=== PATIENT | male | born 1945 | race Caucasian/White ===

== ENCOUNTER 2024-07-29 11:56 | Inpatient (IN) | payer MEDICARE ==
[~2024-07-29] VITALS: Ht 274.3 cm; Wt 146.2 kg
[~2024-07-29 11:56] MED LIST: ALLERGY RE50 MCG/ACT NAB; B12; BAYER CHEWABLE81 MG PO; CHLORTHALIDONE25 MG PO; CLARITIN5 MG PO; D3; ELIQUIS5 MG PO; GABAPENTIN TINY50 MG PO; LASIX 20 MG TAB20 MG PO; LEVOTHYROXIN137 MCG PO; MONTELUKAST SOD10 MG PO; NORVASC PO; OMEGA 3; PERCOCET 5/321 COMBO PO; POT CHLORIDE20 ME2 PO; PROAIR DIG108 MCG/AC; SIMVASTATIN40 MG PO; TOPROL XL25 M1 PO; TRAMADOL HYDROC50 M1 PO; VITAMIN C500 M6 PO; ZINC50 M1 PO; [UNRECOGNIZED DRUG - SUPPLY] XX
[2024-07-29 12:33] VITALS: BP 127/59
[2024-07-29 12:56] LABS: BASO% 0.1 % (0-3); EOS% 2.9 % (0-8); HEMATOCRIT 32.2 % (39.0-50.0); HEMOGLOBIN 9.6 g/dl (14.0-18.0); IMMATURE GRANULOCYTES 0.1 % (0.0-5.0); LYMPH% 7.1 % (15-41); MEAN CELL VOLUME 101.3 fL CALC (80.0-100.0); MEAN CORPUSCULAR HGB 30.2 pG CALC (26.0-32.0); MEAN CORPUSCULAR HGB CONC 29.8 g/dL CAL (32.0-36.0); MONO% 9.1 % (2-13); NEUT# 5.59 thou/uL (1.82-7.42); NEUT% 80.7 % (42-76); RED BLOOD COUNT 3.18 mill/uL (4.70-6.10); RED CELL DISTRI WIDTH 15.5 % (11.5-15.5)
[2024-07-29 13:09] LABS: ALBUMIN 3.9 g/dL (3.2-5.0); BILIRUBIN, TOTAL 0.8 mg/dL (0.2-1.3); CREATININE 1.5 mg/dL (0.7-1.3); POTASSIUM 3.7 mmol/l (3.5-5.1); TOTAL PROTEIN 6.4 g/dL (6.3-8.2)
[2024-07-29 15:18] VITALS: BP 130/75
[2024-07-29] MEDS ORDERED: ACETAMINOPHEN 325 MG/TAB PO PRN (16:25)
[2024-07-29] MEDS ORDERED: Polyethylene Glycol 3350 17 GM/PKT PO PRN (16:25)
[2024-07-29] MEDS ORDERED: ALUM & MAG HYDROX-SIMETHICONE 30 ML PO PRN (16:25)
[2024-07-29] MEDS ORDERED: BUMETANIDE 1 MG/4 ML VIAL IV SCH (16:30)
[2024-07-29] MEDS ORDERED: LORazepam 0.5 MG/TAB PO PRN (16:30)
[2024-07-29 18:36] VITALS: BP 145/52
[2024-07-29 18:58] LABS: URINE BILIRUBIN - DIPSTICK Negative (NEGATIVE); URINE BLOOD DIPSTICK Negative (NEGATIVE); URINE GLUCOSE - DIPSTICK Negative (NEGATIVE); URINE KETONE Negative (NEGATIVE); URINE LEUK ESTERASE Negative (NEGATIVE); URINE NITRITE - DIPSTICK Negative (Negative); URINE PROTEIN - DIPSTICK Negative (NEG-TRACE); URINE SPECIFIC GRAVITY 1.015; URINE UROBILINOGEN - DIPSTICK 0.2 E.U./dL (0.2)
[2024-07-29 19:01] LABS: URINE COLOR Yellow
[2024-07-29 19:19] VITALS: BP 145/52
[2024-07-29] MEDS ORDERED: APIXABAN BASE 2.5 MG/TAB TAB PO SCH (21:00)
[2024-07-29 23:22] VITALS: BP 140/53
[2024-07-30] MEDS ORDERED: FUROSEMIDE 40 MG/4 ML SDV IV SCH (01:30)
[2024-07-30] MEDS ORDERED: ALPRAZolam 0.5 MG/TAB PO SCH (01:30)
[2024-07-30 04:15] VITALS: BP 152/64
[2024-07-30 06:58] LABS: BASO% 0.4 % (0-3); EOS% 2.7 % (0-8); HEMATOCRIT 32.9 % (39.0-50.0); HEMOGLOBIN 9.8 g/dl (14.0-18.0); IMMATURE GRANULOCYTES 0.3 % (0.0-5.0); MEAN CELL VOLUME 100.6 fL CALC (80.0-100.0); MEAN CORPUSCULAR HGB CONC 29.8 g/dL CAL (32.0-36.0); MONO% 10.4 % (2-13); NEUT# 5.65 thou/uL (1.82-7.42); NEUT% 79.2 % (42-76); RED BLOOD COUNT 3.27 mill/uL (4.70-6.10); RED CELL DISTRI WIDTH 15.3 % (11.5-15.5)
[2024-07-30 07:04] VITALS: BP 145/47
[2024-07-30 08:49] LABS: ALBUMIN 3.9 g/dL (3.2-5.0); BILIRUBIN, TOTAL 1.1 mg/dL (0.2-1.3); CHOLESTEROL HDL RATIO 1.8 (<4.4 (CALC)); CREATININE 1.2 mg/dL (0.7-1.3); MAGNESIUM 1.9 mg/dL (1.6-2.3); POTASSIUM 3.7 mmol/l (3.5-5.1); TOTAL PROTEIN 6.4 g/dL (6.3-8.2)
[2024-07-30] MEDS ORDERED: IPRATROPIUM BROMIDE 0.5 MG/2.5 ML SOL IN SCH (11:00)
[2024-07-30] MEDS ORDERED: methylPREDNISolone SODIUM SUCC 125 MG/2 ML SDV IV SCH (11:00)
[2024-07-30] MEDS ORDERED: LEVALBUTEROL HCL 1.25 MG/3 ML VIAL NEB SCH (11:00)
[2024-07-30 11:01] VITALS: BP 133/48
[2024-07-30] MEDS ORDERED: METOPROLOL TARTRATE 25 MG/TAB PO SCH (11:30)
[2024-07-30 14:59] VITALS: BP 156/51
[2024-07-30 19:08] VITALS: BP 133/49
[2024-07-31 00:23] VITALS: BP 139/51
[2024-07-31] MEDS ORDERED: HYDROcodone/Acetaminophen 1 COMBO TAB PO SCH (02:55)
[2024-07-31 04:37] VITALS: BP 119/50
[2024-07-31 07:01] VITALS: BP 127/43
[2024-07-31 10:33] LABS: BASO% 0.3 % (0-3); EOS% 0.1 % (0-8); HEMATOCRIT 30.4 % (39.0-50.0); HEMOGLOBIN 9.3 g/dl (14.0-18.0); IMMATURE GRANULOCYTES 0.3 % (0.0-5.0); LYMPH% 5.8 % (15-41); MEAN CELL VOLUME 99.3 fL CALC (80.0-100.0); MEAN CORPUSCULAR HGB 30.4 pG CALC (26.0-32.0); MEAN CORPUSCULAR HGB CONC 30.6 g/dL CAL (32.0-36.0); MONO% 11.9 % (2-13); NEUT# 6.36 thou/uL (1.82-7.42); NEUT% 81.6 % (42-76); RED BLOOD COUNT 3.06 mill/uL (4.70-6.10); RED CELL DISTRI WIDTH 15.3 % (11.5-15.5)
[2024-07-31 10:41] VITALS: BP 131/52
[2024-07-31 10:44] LABS: ALBUMIN 3.8 g/dL (3.2-5.0); BILIRUBIN, TOTAL 0.9 mg/dL (0.2-1.3); CREATININE 1.3 mg/dL (0.7-1.3); MAGNESIUM 1.7 mg/dL (1.6-2.3); POTASSIUM 3.5 mmol/l (3.5-5.1); TOTAL PROTEIN 6.3 g/dL (6.3-8.2)
[2024-07-31] MEDS ORDERED: BUMETANIDE1 MG PO (12:04)
== END 2024-07-31 12:46 | disposition home or self-care (01) | DRG 291 ==
LOC: MS2 11:56
PROVIDERS: Internal Medicine; ADMIT Student in an Organized Health Care Education/Training Program; ATTEND Student in an Organized Health Care Education/Training Program
DX: I13.0 Hypertensive heart and chronic kidney disease with heart failure and stage 1 through stage 4 chronic kidney disease, or unspecified chronic kidney disease (principal); J96.02 Acute respiratory failure with hypercapnia; J96.21 Acute and chronic respiratory failure with hypoxia; N17.9 Acute kidney failure, unspecified; I50.9 Heart failure, unspecified; N18.9 Chronic kidney disease, unspecified; I48.0 Paroxysmal atrial fibrillation; D53.9 Nutritional anemia, unspecified; J44.9 Chronic obstructive pulmonary disease, unspecified; G47.33 Obstructive sleep apnea (adult) (pediatric); E03.9 Hypothyroidism, unspecified; E66.9 Obesity, unspecified; R19.5 Other fecal abnormalities; Z95.0 Presence of cardiac pacemaker; Z99.81 Dependence on supplemental oxygen; Z79.01 Long term (current) use of anticoagulants